=== PATIENT | male | born 1955 | race Caucasian/White ===

== ENCOUNTER 2016-03-01 17:49 | Emergency (ER) | payer OTHER ==
[~2016-03-01] VITALS: Ht 182.9 cm; Wt 104.3 kg
[2016-03-01 18:08] LABS: ABSOLUTE BASOPHIL COUNT 0 /CUMM (0.0-0.2); ABSOLUTE EOSINOPHIL COUNT 0.1 /CUMM (0.0-0.7); ABSOLUTE GRANULOCYTE CT 6.1 /CUMM (1.4-6.5); ABSOLUTE LYMPH COUNT 1.7 /CUMM (1.2-3.4); ABSOLUTE MONOCYTE COUNT 0.7 /CUMM (0.10-0.60); BASOPHIL % 0.4 % (0.0-2.0); EOSINOPHIL % 1.7 % (0-5); GRANULOCYTE % 70.7 % (42.2-75.2); HEMATOCRIT 43.7 % (42-52); MEAN CORPUSCULAR HGB 28.9 PG (27.0-31.0); MEAN CORPUSCULAR HGB CONC 33.7 G/DL (33.0-37.0); MEAN CORPUSCULAR VOLUME 85.7 FL (80.0-94.0); MEAN PLATELET VOLUME 7.4 FL (7.4-10.4); PLATELET COUNT 223 /CUMM (130-400); WHITE BLOOD CELL COUNT 8.6 /CUMM (4.8-10.8)
--- NOTE | 2016-03-01 18:20 | ED GI/GU/ABDOMINAL COMPLAINT ---
History of Present Illness General Chief Complaint: Abdominal Pain/Flank Pain Stated Complaint: BIBA FOR ABD. PAIN Source: patient Exam Limitations: no limitations Vital Signs & Intake/Output Vital Signs & Intake/Output Vital Signs Date Time Temp Pulse Resp B/P Pulse O2 O2 Flow FiO2 Ox Delivery Rate 03/01 2127 85 20 180/98 94 Room Air 03/01 1926 88 20 183/101 94 Room Air 03/01 1757 98.3 92 20 154/90 97 Room Air Allergies Coded Allergies: No Known Allergies (03/01/16) Reconcile Medications Ezetimibe (Zetia) 10 MG TABLET 1 TAB PO DAILY CHOLESTEROL (Reported) Halobetasol Propionate 0.05 % OINT...G. 1 ALFRED TOP PRN DRY HANDS (Reported) Hydromorphone HCl (Dilaudid) 2 MG TABLET 1 TAB PO BIDP PRN PAIN Ondansetron HCl (Zofran) 4 MG TABLET 1 TAB PO Q6-8P PRN NAUSEA Rosuvastatin Calcium (Crestor) 20 MG TABLET 1 TAB PO DAILY CHOLESTEROL ( Reported) Tamsulosin HCl (Flomax) 0.4 MG CAP.ER.24H 1 CAP PO DAILY KIDNEY STONE Triage Note: BIBA FROM HOME SECONDARY TO ABD PAIN X 3 DAYS. PAIN HAS BEEN WORSENING SINCE. DENIED N/V/D. TENDER TO THE TOUGH TO RUQ. Triage Nurses Notes Reviewed? yes Onset: Abrupt Duration: waxing and waning Timing: recent history Severity Numbers: 7 Location: right flank Activities at Onset: none HPI: Patient is a 60-year-old male with a past medical history of alcohol dependency, hyperlipidemia complains of a three-day history acute set of right-sided abdominal flank pain which she states that the pain was unrelenting for approximately 7 hours acute sharp stabbing severe. Patient states that the pain went away however yesterday pain then came back during the night and has been waxing and waning since. Last bowel movement was today no blood no melena noted. Denies any fever chills cough shortness breath vomiting dysuria hematuria chest pain arm pain jaw pain palpitations. Patient states that in the last 24 hours he has had little to eat or drink due to his symptoms. Patient states that he drinks approximately 2-4 ounces of liquor A DAY (HELIO LOPES,AZALIA) Past History Travel History Traveled to [place] past 21 day No Medical History Any Pertinent Medical History? see below for history Cardiovascular: HIGH CHOLESTEROL Surgical History Surgical History: appendectomy Psychosocial History What is your primary language Yi Tobacco Use: Never used ETOH Use: occasional use, DAILY ETOG WITH DINNER Family History Hx Contributory? No (AZALIA BAÑUELOS) Review of Systems Review of Systems Constitutional: Reports: no symptoms. EENTM: Reports: no symptoms. Respiratory: Reports: no symptoms. Cardiovascular: Reports: no symptoms. GI: Reports: see HPI, abdominal pain. Genitourinary: Reports: see HPI. Musculoskeletal: Reports: no symptoms. Skin: Reports: no symptoms. Neurological/Psychological: Reports: no symptoms. Hematologic/Endocrine: Reports: no symptoms. Immunologic/Allergic: Reports: no symptoms. All Other Systems: Reviewed and Negative (AZALIA BAÑUELOS) Physical Exam Physical Exam General Appearance: mild distress Gastrointestinal: normal bowel sounds, soft, RIGHT FLANK POINT TENDERNESS NO RIGHT LOWER QUADRANT PAIN NO LEFT LOWER QUADRANT PAIN NO EPIGASTRIC PAIN OR RIGHT UPPER QUADRANT PAIN. nO REBOUND TENDERNESS Comments: HEENT: Normal EENT exam, Neck: Supple, no lymphadenopathy, normal range of motion without pain or tenderness Back: Nontender, no CVA tenderness Cardiovascular: Regular rate and rhythms no murmurs rubs or gallops, normal JVP Respiratory: Chest nontender. No respiratory distress.breath sounds clear to auscultation bilaterally Extremity: No edema, no calf tenderness to palpation, normal and equal pulses. Neuro: Alert oriented x3, motor sensory normal, Skin: No appreciable rash on exposed skin, skin is warm and dry. Psych: Mood and affect is normal, memory and judgment is normal. Core Measures ACS in differential dx? No Severe Sepsis Present: No Septic Shock Present: No (AZALIA BAÑUELOS) Progress Differential Diagnosis: AAA, AMI, appendicitis, biliary colic, bowel obstruction , colon cancer, cholecystitis, diverticulitis, epididymitis, esophageal varices, gastritis, hepatitis, hernia, hemorrhoids, ischemic bowel, inflamm bowel dis, Seema-Kayley tear, orchitis, pancreatitis, prostatitis, peptic ulcer, PUD/GERD, perforated viscous, pyelonephritis, SBO, STD, testicular torsion, ureterolithiasis, urinary retention, urethritis, UTI/pyelo Plan of Care: Orders Procedure Date/time Status URINALYSIS 03/01 2044 Complete Add-on Test (ER Only) 01/22 1819 Active LIPASE 03/01 1800 Complete DIRECT BILIRUBIN 03/01 1800 Complete AMYLASE 03/01 1800 Complete COMPREHENSIVE METABOLIC PANEL 03/01 1758 Complete CBC WITHOUT DIFFERENTIAL 03/01 1758 Complete Laboratory Tests 03/01/162048: Urine Color YEL, Urine Clarity CLEAR, Urine pH 6.0, Ur Specific Lincoln 1.020, Urine Protein NEG, Urine Ketones TRACE H, Urine Nitrite NEG, Urine Bilirubin NEG, Urine Urobilinogen 0.2, Ur Leukocyte Esterase NEG, Ur Microscopic SEDIMENT EXAMINED, Urine RBC RARE, Urine Hemoglobin SMALL H, Urine Glucose NEG 03/01/161800: Anion Gap 12, Estimated GFR 52 L, BUN/Creatinine Ratio 10.0, Glucose 100 H, Calcium 9.3, Total Bilirubin 0.9, Direct Bilirubin 0.4, AST 31, ALT 67, Alkaline Phosphatase 62, Total Protein 6.6, Albumin 4.0, Globulin 2.6, Albumin/Globulin Ratio 1.5, Amylase 68, Lipase 170, CBC w Diff NO MAN DIFF REQ, RBC 5.10, MCV 85.7, MCH 28.9, RDW 14.0, MPV 7.4, Gran % 70.7, Lymphocytes % 19.5 L, Monocytes % 7.7, Eosinophils % 1.7, Basophils % 0.4, Absolute Granulocytes 6.1, Absolute Lymphocytes 1.7, Absolute Monocytes 0.7 H, Absolute Eosinophils 0.1, Absolute Basophils 0, PUBS MCHC 33.7 03/01/2016 8:20:58 PM patient had significant resolution of his pain after IV Dilaudid was administered. Patient does have concerns of a 4 mm stone with hydronephrosis. Urine analysis is unremarkable Patient had mild exacerbation of his pain in which he was administered 2 mg of by mouth Dilaudid which completely resolved his pain. Upon discharge patient looks well no apparent distress. Patient was able tolerate by mouth and also provide urine in which this was unremarkable for infection. Patient was strongly advised to follow-up with urology tomorrow and he will comply. (HELIO LOPES,AZALIA) Diagnostic Imaging: Viewed by Me: CT Scan. Radiology Impression: acute abnormality Initial ED EKG: none Comments: PATIENT: MEGAN GRAVES PRESENT AGE: 60 PATIENT ACCOUNT NO: [id number] : 54 LOCATION: [facility] ORDERING PHYSICIAN: AZALIA LOPES SERVICE DATE: 03/01/16 EXAM TYPE: CAT - CT ABD & PELVIS W/O IV CONTRAS EXAMINATION: CT ABDOMEN AND PELVIS WITHOUT CONTRAST CLINICAL INFORMATION: Right flank pain COMPARISON: None. TECHNIQUE: Multidetector volumetric imaging was performed from the superior aspect of the liver through the pubic symphysis. Sagittal and coronal reformatted images were obtained on the technologist's workstation. DLP: 853.8 mGy-cm. FINDINGS: LUNG BASES: There is bibasilar dependent atelectasis. No focal consolidation or effusion. LIVER, GALLBLADDER, AND BILIARY TREE: The liver is normal in size, shape, and attenuation. No focal hepatic lesion or biliary ductal dilatation is present. The gallbladder is unremarkable with no evidence of radiopaque gallstones, gallbladder wall thickening, or obvious pericholecystic inflammatory changes. PANCREAS: Unremarkable. SPLEEN: Unremarkable. ADRENAL GLANDS: Unremarkable. KIDNEYS AND URETERS: Left kidney is normal in size. There are at least 2 punctate densities measuring between 1 and 2 mm within the upper and midpole regions consistent with nonobstructing stones. There is no hydronephrosis. There is mild left sided perinephric stranding. The right kidney appears swollen. There is moderate hydroureteronephrosis kyphosis which is secondary to a mid ureteral stone measuring 0.4 cm in size. There is extensive asymmetric perinephric stranding on the right. BLADDER: Unremarkable. GASTROINTESTINAL TRACT: There are no dilated loops of small or large bowel. Dense stool is noted within the cecum. There are a few scattered diverticula without CT evidence for acute diverticulitis. No discrete appendix is visualized. ABDOMINAL WALL: No significant hernia is appreciated. LYMPH NODES: Normal. VASCULAR: Moderate calcifications involve the abdominal aorta. PELVIC VISCERA: Prostate and seminal vesicles are unremarkable. OSSEOUS STRUCTURES: There are mild degenerative changes involving the lumbar spine. IMPRESSION: 1. Acute moderate right-sided hydroureteronephrosis secondary to mid ureteral stone. 2. Diverticulosis without CT evidence for acute diverticulitis. (AZALIA BAÑUELOS) Departure Departure Disposition: HOME OR SELF CARE Condition: Stable Clinical Impression Primary Impression: Kidney stone on right side Referrals: ELISEO ROSARIO,LEYLA PLAMER MD,THANIA Garcia (PCP/Family) Additional Instructions: As discussed begin the prescription of Dilaudid for pain as directed. Begin the prescription of Flomax for your symptoms and the prescription OF ZOFRAN FOR NAUSEA. IF you develop a new concerning symptom or symptoms worsen return to emergency room. Tomorrow please follow up with urologist Dr. CARDENAS for further evaluation treatment. Departure Forms: Customer Survey General Discharge Information Prescriptions: Current Visit Scripts Hydromorphone HCl (Dilaudid) 1 TAB PO BIDP PRN PAIN #10 TAB Tamsulosin HCl (Flomax) 1 CAP PO DAILY #7 CAP Ondansetron HCl (Zofran) 1 TAB PO Q6-8P PRN NAUSEA #15 TAB (AZALIA BAÑUELOS) PA/OIL WELL DRILLER Co-Sign Statement Statement: ED Attending supervision documentation- [] I saw and evaluated the patient. I have also reviewed all the pertinent lab results and diagnostic results. I agree with the findings and the plan of care as documented in the PA's/OIL WELL DRILLER's documentation. [X] I have reviewed the ED Record and agree with the PA's/OIL WELL DRILLER's documentation. [] Additions or exceptions (if any) to the PAs/OIL WELL DRILLER's note and plan are summarized below: [] (FATEMEH ROSARIO,MARQUIS Islas)
[2016-03-01] MEDS ORDERED: CRESTOR20 M2 PO (19:01)
[2016-03-01] MEDS ORDERED: ZETIA10 M1 PO (19:01)
[2016-03-01] MEDS ORDERED: HALOBETASOL PRO15 G1 TOP (19:02)
--- NOTE | 2016-03-01 19:41 | CT SCAN REPORT ---
EXAMINATION: CT ABDOMEN AND PELVIS WITHOUT CONTRAST CLINICAL INFORMATION: Right flank pain COMPARISON: None. TECHNIQUE: Multidetector volumetric imaging was performed from the superior aspect of the liver through the pubic symphysis. Sagittal and coronal reformatted images were obtained on the technologist's workstation. DLP: 853.8 mGy-cm. FINDINGS: LUNG BASES: There is bibasilar dependent atelectasis. No focal consolidation or effusion. LIVER, GALLBLADDER, AND BILIARY TREE: The liver is normal in size, shape, and attenuation. No focal hepatic lesion or biliary ductal dilatation is present. The gallbladder is unremarkable with no evidence of radiopaque gallstones, gallbladder wall thickening, or obvious pericholecystic inflammatory changes. PANCREAS: Unremarkable. SPLEEN: Unremarkable. ADRENAL GLANDS: Unremarkable. KIDNEYS AND URETERS: Left kidney is normal in size. There are at least 2 punctate densities measuring between 1 and 2 mm within the upper and midpole regions consistent with nonobstructing stones. There is no hydronephrosis. There is mild left sided perinephric stranding. The right kidney appears swollen. There is moderate hydroureteronephrosis kyphosis which is secondary to a mid ureteral stone measuring 0.4 cm in size. There is extensive asymmetric perinephric stranding on the right. BLADDER: Unremarkable. GASTROINTESTINAL TRACT: There are no dilated loops of small or large bowel. Dense stool is noted within the cecum. There are a few scattered diverticula without CT evidence for acute diverticulitis. No discrete appendix is visualized. ABDOMINAL WALL: No significant hernia is appreciated. LYMPH NODES: Normal. VASCULAR: Moderate calcifications involve the abdominal aorta. PELVIC VISCERA: Prostate and seminal vesicles are unremarkable. OSSEOUS STRUCTURES: There are mild degenerative changes involving the lumbar spine. IMPRESSION: 1. Acute moderate right-sided hydroureteronephrosis secondary to mid ureteral stone. 2. Diverticulosis without CT evidence for acute diverticulitis.
[2016-03-01] MEDS ORDERED: ZOFRAN4 M2 PO (20:51)
[2016-03-01] MEDS ORDERED: DILAUDID2 M1 PO (20:51)
[2016-03-01] MEDS ORDERED: FLOMAX0.4 M1 PO (20:51)
[2016-03-01 21:28] VITALS: BP 180/98
== END 2016-03-01 21:29 ==
LOC: ERH 17:49
PROVIDERS: Physician Assistant
DX: N20.0 Calculus of kidney (principal)
CPT/HCPCS: 74176; 81001; 96361; 96374; 96375; 96376; J2405

== ENCOUNTER → 2016-03-09 | Day surgery (SDC) | payer OTHER ==
[~2016-03-09] VITALS: Ht 182.9 cm; Wt 104.3 kg
[~2016-03-09] MED LIST: AUGMENTIN 875-1 EACH PO; CIPRO500 M1 PO; CRESTOR20 M2 PO; DILAUDID2 M1 PO; FLOMAX0.4 M1 PO; HALOBETASOL PRO15 G1 TOP; PERCOCET 5-3251 EACH PO; ZETIA10 M1 PO; ZOFRAN4 M2 PO
--- NOTE | 2016-03-10 11:35 | Operative Report ---
Operative/Inv Procedure Report Surgery Date: 03/09/16 Name of Procedure: right ureteroscopy with retrograde pyelogram and stent placement Pre-Operative Diagnosis: right midureteral stone with renal colic Post-Operative Diagnosis: right kidney stone Estimated Blood Loss: aniceto Surgeon/Prisoner Classification Interviewer: LEYLA GOMES MD Anesthesia: laryngeal mask airway Drains: 6x28 ureteral stent Specimens: stone Complications: equipment issues eg water tubing, ureteroscope troubleshooting Condition: stable Operative Indication: right renal colic Operative/Procedure Note Note: 61yo male with a right midureter stone with renal colic. He was seen in the office with his first stone experience. He was given the options of ESWL vs URS with laser lithotripsy. He opted for URS. He was identified in the holding area and consented for URS with laserlithotripsy and stent placement. The risks , benefits and alternatives were given. All questions were answered for him and his . He was taken to the operating room and placed on the operating table in the supine position. Once time out was performed, he was given IV antibiotics and LMA was placed for anesthesia. He was placed into the dorsal lithotomy position and prepped and draped in the standard sterile fashion. Cystoscopy was performed first and no bladder abnormalities were noted. The ureteral orifices were in the normal anatomic position. No stones were noted in the bladder. A sensor guidewire was placed up the ureter into the kidney on the right side without difficulty and with flouroscopic guidance. A semirigid ureteroscope was then used to traverse the ureter and no stones were seen visually through the ureteroscope or via flouroscopy. As a result, a dual lumen catheter was then used to place a superstiff wire up to the renal pelvis as well. Then a flexible ureteroscopy was placed but was unable to be placed up the ureter. A retrograde pyelogram was performed and the ureter and the UPJ junction appeared somewhat narrowed and atypical. A ureteral access sheath was then placed and the flexible ureteroscope was able to be placed into the renal pelvis. The calyces were examined sequentially and the stone was seen to be in the midpole. It was yellow in color and flat and jagged. It was grabbed with a zero tip basket. It was able to be removed via the access sheath without laser lithotripsy. It was sent for stone analysis. The ureteroscope was then removed while visualizing the ureter to ensure no other stones or fragments were present. Only one was seen on CT previously. The access sheath was also removed. The remaining sensor wire was then used to place a 6x28 cm stent with the string attached. Flouroscopy showed the stent to be in good position and the wire was removed. The string was secured to his penis with tegaderm after cleaning off the betadine prep. The patient tolerated the procedure well. Findings: midpole kidney stone. retrograde pyleogram showed narrowing at the UPJ. Discharge Disposition: PACU
--- NOTE | 2016-03-10 15:21 | RADIOLOGY REPORT ---
EXAMINATION: Intraoperative fluoroscopy CLINICAL INDICATION: Right ureteroscopically and stent placement COMPARISON: CT abdomen pelvis 03/01/2016 TECHNIQUE: Intraoperative fluoroscopy was utilized by Dr. Gaxiola during a right-sided ureteroscopy and stent placement. 19 images were saved to PACS. Total fluoroscopic time: 36 seconds FINDINGS/IMPRESSION: Intraoperative fluoroscopy was utilized by Dr. Gaxiola during a right-sided ureteroscopy and stent placement. Please see operative note for detailed findings.
== END ==
LOC: STS 02:50
DX: N20.2 Calculus of kidney with calculus of ureter (principal); E78.00 Pure hypercholesterolemia, unspecified; Z87.891 Personal history of nicotine dependence
CPT/HCPCS: 74000; 82355; C2617; J0131; J0690; J2250

== ENCOUNTER 2016-03-13 11:49 | Emergency (ER) | payer OTHER ==
[~2016-03-13] VITALS: Ht 182.9 cm; Wt 98.9 kg
[~2016-03-13 11:49] MED LIST changes: -AUGMENTIN 875-1 EACH PO; -CIPRO500 M1 PO; -PERCOCET 5-3251 EACH PO
[2016-03-13 12:35] LABS: ABSOLUTE BASOPHIL COUNT 0.1 /CUMM (0.0-0.2); ABSOLUTE EOSINOPHIL COUNT 0.1 /CUMM (0.0-0.7); ABSOLUTE GRANULOCYTE CT 5.5 /CUMM (1.4-6.5); ABSOLUTE LYMPH COUNT 1.9 /CUMM (1.2-3.4); BASOPHIL % 0.8 % (0.0-2.0); EOSINOPHIL % 1.7 % (0-5); GRANULOCYTE % 63.5 % (42.2-75.2); MEAN CORPUSCULAR HGB 28.5 PG (27.0-31.0); MEAN CORPUSCULAR VOLUME 83.8 FL (80.0-94.0); PLATELET COUNT 397 /CUMM (130-400); RBC DISTRIBUTION WIDTH 13.6 % (11.5-14.5); RED BLOOD CELL CT 5.25 /CUMM (4.70-6.10); WHITE BLOOD CELL COUNT 8.7 /CUMM (4.8-10.8)
--- NOTE | 2016-03-13 13:23 | ED GENERAL ADULT ---
History of Present Illness General Chief Complaint: Low Back Pain/Injury Stated Complaint: KIDNEY STONE REMOVED TH/LBP Source: patient, old records Exam Limitations: no limitations Vital Signs & Intake/Output Vital Signs & Intake/Output Vital Signs Date Time Temp Pulse Resp B/P Pulse O2 O2 Flow FiO2 Ox Delivery Rate 03/13 1549 98.3 74 18 142/98 95 Room Air 03/13 1221 98.0 98 20 137/83 98 Room Air Room Air Allergies Coded Allergies: No Known Allergies (03/01/16) Reconcile Medications Ciprofloxacin HCl (Cipro) 500 MG TABLET 1 TAB PO BID infection/urine Ezetimibe (Zetia) 10 MG TABLET 1 TAB PO DAILY CHOLESTEROL (Reported) Halobetasol Propionate 0.05 % OINT...G. 1 ALFRED TOP PRN DRY HANDS (Reported) Hydromorphone HCl (Dilaudid) 2 MG TABLET 1 TAB PO BIDP PRN PAIN Ondansetron HCl (Zofran) 4 MG TABLET 1 TAB PO Q6-8P PRN NAUSEA Oxycodone HCl/Acetaminophen (Percocet 5-325 MG Tablet) 5 MG-325 MG TABLET 1 TAB PO Q6H PRN PAIN Rosuvastatin Calcium (Crestor) 20 MG TABLET 1 TAB PO DAILY CHOLESTEROL ( Reported) Tamsulosin HCl (Flomax) 0.4 MG CAP.ER.24H 1 CAP PO DAILY KIDNEY STONE Triage Note: PT TO ED WITH C/O RIGHT BACK/FLANK PAIN, HAD RECENT KIDNEY STONE REMOVAL, STARTED WITH BACK PAIN WORSE TODAY, TOOK 1/2 PERCOCET FOR THE PAIN. Triage Nurses Notes Reviewed? yes HPI: Patient is a 61-year-old male presents complaining of right-sided back pain. Patient had a kidney stone removal and ureteral stent placed on Wednesday. The ureteral stent was removed on Wednesday by Dr. Gaxiola. Patient reports that he has been having sharp 10 out of 10 pain to his right back intermittently since Wednesday. Pain is currently 0 out of 10. Patient took one half of a Percocet at approximately 10:30 am with significant improvement when the pain was 10 out of 10 at that time. Positive chills and subjective fevers yesterday evening. Patient was on ciprofloxacin up until yesterday evening. Positive hematuria. Patient denies nausea, vomiting, diarrhea, abdominal pain. (HEPRANAY YUAN) Past History Travel History Traveled to [place] past 21 day No Medical History Any Pertinent Medical History? see below for history Neurological: NONE EENT: NONE Cardiovascular: HIGH CHOLESTEROL Respiratory: NONE Gastrointestinal: NONE Hepatic: NONE Renal: KIDNEY STONES Musculoskeletal: NONE Psychiatric: NONE Endocrine: NONE Blood Disorders: NONE Cancer(s): NONE WELDING MACHINE OPERATOR HELPER GAS/Reproductive: NONE Surgical History Surgical History: appendectomy, URETERAL STENT Psychosocial History What is your primary language Taiwanese Tobacco Use: Never used ETOH Use: denies use Illicit Drug Use: denies illicit drug use Family History Hx Contributory? No (PRANAY JOSUE) Review of Systems Review of Systems Constitutional: Reports: chills, fever (subjective). EENTM: Reports: no symptoms. Respiratory: Denies: cough, short of breath. Cardiovascular: Denies: chest pain. GI: Reports: see HPI. Genitourinary: Reports: see HPI, hematuria. Musculoskeletal: Reports: back pain. Skin: Reports: no symptoms. Neurological/Psychological: Reports: no symptoms. Hematologic/Endocrine: Reports: no symptoms. Immunologic/Allergic: Reports: no symptoms. (PRANAY JOSUE) Physical Exam Physical Exam General Appearance: well developed/nourished, alert, awake Head: atraumatic, normal appearance Eyes: Bilateral: normal appearance, PERRL, EOMI. Ears, Nose, Throat: hearing grossly normal Neck: normal inspection, supple, full range of motion Respiratory: normal breath sounds, no respiratory distress, lungs clear Cardiovascular: regular rate/rhythm Gastrointestinal: soft, MILD RIGHT UPPER AND RIGHT MID ABDOMINAL TENDERNESS. nEGATIVE Marie SIGN. Back: normal inspection, normal range of motion, no vertebral tenderness, NO cva TENDERNESS Extremities: normal inspection, normal capillary refill, normal range of motion, no edema Neurologic/Psych: no motor/sensory deficits, awake, alert, oriented x 3, normal gait, normal mood/affect Skin: intact, normal color, warm/dry Lymphatic: no anterior cervical shruti Core Measures ACS in differential dx? No CVA/TIA Diagnosis: No Severe Sepsis Present: No Septic Shock Present: No (PRANAY JOSUE) Progress Differential Diagnoses I considered the following diagnoses in my evaluation of the patient: Renal colic, pyelonephritis, intra-abdominal infection Plan of Care: Orders Procedure Date/time Status Add-on Test (ER Only) 03/13 1504 Active CULTURE,URINE 03/13 122 Active URINALYSIS 03/13 122 Complete COMPREHENSIVE METABOLIC PANEL 03/13 122 Complete CBC WITHOUT DIFFERENTIAL 03/13 1222 Complete Laboratory Tests 03/13/16 1346: Urinalysis LIGHT H, Urine Color YEL, Urine Clarity HAZY H, Urine pH 6.0, Ur Specific [place] 1.010, Urine Protein 30 H, Urine Ketones NEG, Urine Nitrite NEG, Urine Bilirubin NEG, Urine Urobilinogen 0.2, Ur Leukocyte Esterase SMALL H , Ur Microscopic SEDIMENT EXAMINED, Urine RBC 25-50 H, Urine WBC 25-50 H, Urine Mucus RARE, Urine Hemoglobin LARGE H, Urine Glucose NEG 03/13/16 1226: Anion Gap 13, Estimated GFR > 60, BUN/Creatinine Ratio 14.5, Glucose 107 H, Calcium 9.5, Total Bilirubin 0.6, AST 37, ALT 113 H, Alkaline Phosphatase 75, Total Protein 6.9, Albumin 4.1, Globulin 2.8, Albumin/Globulin Ratio 1.5, CBC w Diff NO MAN DIFF REQ, RBC 5.25, MCV 83.8, MCH 28.5, RDW 13.6, MPV 7.0 L, Gran % 63.5, Lymphocytes % 22.0, Monocytes % 12.0 H, Eosinophils % 1.7, Basophils % 0.8, Absolute Granulocytes 5.5, Absolute Lymphocytes 1.9, Absolute Monocytes 1.0 H, Absolute Eosinophils 0.1, Absolute Basophils 0.1, PUBS MCHC 34.0 Microbiology 03/13 1222 URINE ROUT: Urine Culture - RECD 1535: Discussed with Dr. Gaxiola: can start patient back on cipro, have take 0.8mg of flomax daily, pain control and call the office on Wednesday for follow up. 1540: Plan and follow up discussed with patient, agreeable to plan. No pain currently. (MING LOPES,PRANAY) Diagnostic Imaging: Viewed by Me: CT Scan. Discussed w/RAD: CT Scan. Radiology Impression: PATIENT: MEGAN GRAVES PRESENT AGE: 61 PATIENT ACCOUNT NO: [id number] : 54 LOCATION: [facility] ORDERING PHYSICIAN: PRANAY LOPES SERVICE DATE: 03/13/16 EXAM TYPE: CAT - CT ABD & PELVIS W/O IV CONTRAS EXAMINATION: CT ABDOMEN AND PELVIS WITHOUT CONTRAST CLINICAL INFORMATION: Right back pain and chills. Recent renal stent placement and removal. COMPARISON: Previous CT of the abdomen and pelvis 2016 and intraoperative fluoroscopic images from right retrograde exam and stent placement 03/09/2016. TECHNIQUE: Multidetector volumetric imaging was performed from the superior aspect of the liver through the pubic symphysis. Sagittal and coronal reformatted images were obtained on the technologist's workstation. DLP: 635 mGy-cm FINDINGS: LUNG BASES: The lung bases are clear. There is elevation of the left hemidiaphragm. The visualized thoracic aorta appears upper normal in size. There is aortic valve and coronary artery calcification. LIVER, GALLBLADDER, AND BILIARY TREE: The liver is normal in size, shape, and attenuation. No focal hepatic lesion or biliary ductal dilatation is present. The gallbladder is unremarkable with no evidence of radiopaque gallstones, gallbladder wall thickening, or obvious pericholecystic inflammatory changes. PANCREAS: Unremarkable. SPLEEN: Unremarkable. ADRENAL GLANDS: Unremarkable. KIDNEYS AND URETERS: There is moderate right renal hydronephrosis and proximal dilatation. There is a 2 x 4 mm right mid ureteral stone. This is similar in location to previous exam 03/01/2016. The ureter distal to this is dilated as well. There is stranding of the right perinephric and periureteral fat. This is similar to previous exam. No retroperitoneal fluid collection is seen. There is a 2 mm stone in the upper pole of the left kidney and a 2 mm stone in the lower pole of the left kidney. No left hydronephrosis, ureteral dilatation or ureteral stone is seen. There is a small calcification in the right renal hilum probably representing a vascular calcification. BLADDER: There is a small amount of air in the bladder likely related to previous retrograde exam 03/09/2016. GASTROINTESTINAL TRACT: There is evidence of diverticulosis. The appendix is unremarkable. ABDOMINAL WALL: There is a small umbilical hernia containing fat. LYMPH NODES: Normal. VASCULAR: There is evidence of atherosclerotic disease. No aneurysm is seen. PELVIC VISCERA: Unremarkable. OSSEOUS STRUCTURES: There are degenerative changes of the spine. IMPRESSION: Mild right hydronephrosis and right proximal ureteral dilatation from a 2 x 4 mm right mid ureteral stone. This appears unchanged in location from 03/01/2016 exam. The right ureter distal to the stone is slightly dilated as well. There is fat stranding of the right perinephric and periureteral fat that is unchanged. 2 small left renal stones. Diverticulosis. Upper normal-sized thoracic aorta. Coronary artery and aortic valve calcification. DICTATED BY: ARABELLA GAN MD DATE/TIME DICTATED:1433 MEDICAL TECHNOLOGIST HEMATOLOGY:MARISELA DATE/TIME TRANSCRIBED:03/13/161433 CONFIDENTIAL, DO NOT COPY WITHOUT APPROPRIATE AUTHORIZATION. <Electronically signed in Other Vendor System> SIGNED BY: ARABELLA GAN MD 03/13/16 1455 Initial ED EKG: none (PRANAY JOSUE) Departure Departure Time of Disposition: 1540 Disposition: HOME OR SELF CARE Condition: Stable Clinical Impression Primary Impression: Renal colic on right side Referrals: ELISEO ROSARIO,LEYLA PALMER MD,THANIA Garcia (PCP/Family) Additional Instructions: Call Dr. Gaxiola on Wednesday for follow up. Take 0.8mg of Flomax daily. Return to the ER if fever above 100.3, pain uncontrollable or worsening of symptoms. Departure Forms: Customer Survey General Discharge Information Prescriptions: Current Visit Scripts Ciprofloxacin HCl (Cipro) 1 TAB PO BID #20 TAB Oxycodone HCl/Acetaminophen (Percocet 5-325 MG Tablet) 1 TAB PO Q6H PRN PAIN #10 TAB (PRANAY JOSUE) PA/AWNING CRAFTSPERSON Co-Sign Statement Statement: ED Attending supervision documentation- [] I saw and evaluated the patient. I have also reviewed all the pertinent lab results and diagnostic results. I agree with the findings and the plan of care as documented in the PA's/AWNING CRAFTSPERSON's documentation. [x] I have reviewed the ED Record and agree with the PA's/AWNING CRAFTSPERSON's documentation. [] Additions or exceptions (if any) to the PAs/AWNING CRAFTSPERSON's note and plan are summarized below: [] (ROSA PATEL,GUY Thayer) Critical Care Note Critical Care Note Critical Care Time: non-applicable (PRANAY JOSUE)
--- NOTE | 2016-03-13 14:55 | CT SCAN REPORT ---
EXAMINATION: CT ABDOMEN AND PELVIS WITHOUT CONTRAST CLINICAL INFORMATION: Right back pain and chills. Recent renal stent placement and removal. COMPARISON: Previous CT of the abdomen and pelvis 03/01/2016 and intraoperative fluoroscopic images from right retrograde exam and stent placement 03/09/2016. TECHNIQUE: Multidetector volumetric imaging was performed from the superior aspect of the liver through the pubic symphysis. Sagittal and coronal reformatted images were obtained on the technologist's workstation. DLP: 635 mGy-cm FINDINGS: LUNG BASES: The lung bases are clear. There is elevation of the left hemidiaphragm. The visualized thoracic aorta appears upper normal in size. There is aortic valve and coronary artery calcification. LIVER, GALLBLADDER, AND BILIARY TREE: The liver is normal in size, shape, and attenuation. No focal hepatic lesion or biliary ductal dilatation is present. The gallbladder is unremarkable with no evidence of radiopaque gallstones, gallbladder wall thickening, or obvious pericholecystic inflammatory changes. PANCREAS: Unremarkable. SPLEEN: Unremarkable. ADRENAL GLANDS: Unremarkable. KIDNEYS AND URETERS: There is moderate right renal hydronephrosis and proximal dilatation. There is a 2 x 4 mm right mid ureteral stone. This is similar in location to previous exam 03/01/2016. The ureter distal to this is dilated as well. There is stranding of the right perinephric and periureteral fat. This is similar to previous exam. No retroperitoneal fluid collection is seen. There is a 2 mm stone in the upper pole of the left kidney and a 2 mm stone in the lower pole of the left kidney. No left hydronephrosis, ureteral dilatation or ureteral stone is seen. There is a small calcification in the right renal hilum probably representing a vascular calcification. BLADDER: There is a small amount of air in the bladder likely related to previous retrograde exam 03/09/2016. GASTROINTESTINAL TRACT: There is evidence of diverticulosis. The appendix is unremarkable. ABDOMINAL WALL: There is a small umbilical hernia containing fat. LYMPH NODES: Normal. VASCULAR: There is evidence of atherosclerotic disease. No aneurysm is seen. PELVIC VISCERA: Unremarkable. OSSEOUS STRUCTURES: There are degenerative changes of the spine. IMPRESSION: Mild right hydronephrosis and right proximal ureteral dilatation from a 2 x 4 mm right mid ureteral stone. This appears unchanged in location from 03/01/2016 exam. The right ureter distal to the stone is slightly dilated as well. There is fat stranding of the right perinephric and periureteral fat that is unchanged. 2 small left renal stones. Diverticulosis. Upper normal-sized thoracic aorta. Coronary artery and aortic valve calcification.
[2016-03-13 15:49] VITALS: BP 142/98
[2016-03-13] MEDS ORDERED: CIPRO500 M1 PO (15:50)
[2016-03-13] MEDS ORDERED: PERCOCET 5-3251 EACH PO (15:50)
== END 2016-03-13 15:57 ==
LOC: ERH 11:49
PROVIDERS: Emergency Medicine
DX: N23 Unspecified renal colic (principal)
CPT/HCPCS: 74176; 81001; 87086; 96374; J1885

== ENCOUNTER 2016-06-16 17:25 | Emergency (ER) | payer OTHER ==
[~2016-06-16] VITALS: Ht 182.9 cm; Wt 99.8 kg
[~2016-06-16 17:25] MED LIST changes: +CIPRO500 M1 PO; +PERCOCET 5-3251 EACH PO
[2016-06-16 17:40] VITALS: BP 112/72
--- NOTE | 2016-06-16 18:09 | ED HAND/WRIST INJURY COMPLAINT ---
History of Present Illness General Chief Complaint: Laceration Procedure Stated Complaint: LAC TO FINGER Source: patient, family, old records Exam Limitations: no limitations Vital Signs & Intake/Output Vital Signs & Intake/Output Vital Signs Date Time Temp Pulse Resp B/P B/P Pulse O2 O2 Flow FiO2 Mean Ox Delivery Rate 06/16 1740 112/72 06/16 1729 97.5 73 16 87/65 94 Room Air ED Intake and Output 06/17 0000 06/16 1200 Intake Total Output Total Balance Patient 220 lb Weight Allergies Coded Allergies: No Known Allergies (03/01/16) Reconcile Medications Amoxicillin/Potassium Clav (Augmentin 875-125 Tablet) 875 MG-125 MG TABLET 1 TAB PO BID open tuft fracture Ezetimibe (Zetia) 10 MG TABLET 1 TAB PO DAILY CHOLESTEROL (Reported) Rosuvastatin Calcium (Crestor) 20 MG TABLET 1 TAB PO DAILY CHOLESTEROL ( Reported) Triage Note: PT CUT HIS FINGER ON A CIRCULAR SAW. PT IN WAITING ROOM PASSING OUT IN CHAIR. PLACED ON EKG STRETCHER Triage Nurses Notes Reviewed? yes HPI: Patient is a 61 year old male presents complaining of laceration to his left middle finger. Patient was using a circular saw at 1700 today when he accidentally lacerated his finger. Pain is 1/10, worsens with palpation. Last tetanus immunization within the past 5 years. Patient is right hand dominant. Denies numbness or decreased range of motion. Patient had a near syncopal episode in the waiting room, improved with lying flat. (PRANAY JOSUE) Past History Travel History Traveled to [place] past 21 day No Medical History Any Pertinent Medical History? see below for history Neurological: NONE EENT: NONE Cardiovascular: HIGH CHOLESTEROL Respiratory: NONE Gastrointestinal: NONE Hepatic: NONE Renal: KIDNEY STONES Musculoskeletal: NONE Psychiatric: NONE Endocrine: NONE Blood Disorders: NONE Cancer(s): NONE GUEST SERVICE MANAGER/Reproductive: NONE Surgical History Surgical History: appendectomy, URETERAL STENT Psychosocial History What is your primary language Togolese Tobacco Use: Never used ETOH Use: occasional use Illicit Drug Use: denies illicit drug use Family History Hx Contributory? No (PRANAY JOSUE) Review of Systems Review of Systems Constitutional: Reports: no symptoms. Cardiovascular: Reports: syncope (NEAR SYNCOPE IN WAITING ROOM). Musculoskeletal: Reports: see HPI. Skin: Reports: see HPI. Neurological/Psychological: Denies: numbness, paresthesia. Hematologic/Endocrine: Reports: bleeding (FROM WOUND). Immunologic/Allergic: Denies: splenectomy. (PRANAY JOSUE) Physical Exam Physical Exam General Appearance: well developed/nourished, alert, awake Head: atraumatic, normal appearance Eyes: Bilateral: normal appearance. Ears, Nose, Throat: hearing grossly normal Neck: normal inspection, supple, full range of motion Cardiovascular/Respiratory: no respiratory distress Back: normal range of motion Hand Left: macerated 2.5 cm laceration to the left middle finger distal on the ulnar side inculding the ulnar border of the finger nail. Full range of motion, no visible or functional tendon deficit. Sensation grossly intact Hand Right: normal inspection, normal range of motion Neurologic/Tendon: normal sensation, normal motor functions, normal tendon functions Skin: wound to left middle finger. see left hand exam (PRANAY JOSUE) Progress Differential Diagnosis: laceration, tendon laceration, foreign body, fracture Plan of Care: Current Medications Sig/Enrrique Start time Last Medication Dose Stop Time Status Admin Amoxicillin/ 875 MG ONCE ONE 06/17 1999 AC Clavulanate Potassium 06/16 2000 (Augmentin) Results of x-rays discussed with patient and his . Unable to find and remove foreign body(vs bone fragment) seen on x-ray. This was discussed with patient and his . Patient to follow up with hand surgery for further evaluation. (PRANAY JOSUE) Diagnostic Imaging: Viewed by Me: Radiology Read. Discussed w/RAD: Radiology Read. Radiology Impression: PATIENT: MEGAN GRAVES PRESENT AGE: 61 PATIENT ACCOUNT NO: [id number] : 54 LOCATION: [facility] ORDERING PHYSICIAN: PRANAY LOPES SERVICE DATE: 06/16/16 EXAM TYPE: RAD - XRY-FINGERS, LEFT EXAMINATION: XR FINGER, LEFT CLINICAL INFORMATION: Trauma to left middle digit. COMPARISON: None TECHNIQUE: Three views of the left middle digit. FINDINGS: Bandage over the distal finger. Soft tissue laceration at the distal tip of the middle digit. There is comminuted mildly displaced fracture of the distal tuft of the distal phalanx. Fracture extends obliquely through the mid to proximal shaft of the distal phalanx to the periarticular the bone at the radial side of the phalanges. There is bone loss of the ulnar side of the distal tuft of the distal phalanges and likely some loss of soft tissue. There is a radiopaque 2 mm foreign body or calcification in the soft tissues at the radial side of the distal tip of the digit. IMPRESSION: Soft tissue laceration with comminuted fracture of the distal phalanges of the middle digit. 2 mm radiopaque foreign body or calcification the soft tissues at the radial side of the distal tip of this digit. DICTATED BY: GERARDO RANDHAWA MD DATE/TIME DICTATED:06/16/161823 STRE[address] LIGHT REPAIRER:MARISELA DATE/TIME TRANSCRIBED:06/16/161823 CONFIDENTIAL, DO NOT COPY WITHOUT APPROPRIATE AUTHORIZATION. <Electronically signed in Other Vendor System> SIGNED BY: GERARDO RANDHAWA MD 06/16/161829 (PRANAY JOSUE) Departure Departure Time of Disposition: 1946 Disposition: HOME OR SELF CARE Condition: Stable Clinical Impression Primary Impression: Open fracture of tuft of distal phalanx of finger Qualifiers: Encounter type: initial encounter Qualified Code: S62.639B - Displaced fracture of distal phalanx of unspecified finger, initial encounter for open fracture Referrals: ESTELA ROSARIO,THANIA Garcia (PCP/Family) CAN ROSARIO,TEO Mcmahon Additional Instructions: Follow up with Dr. Lawrence(hand surgeon), or with your hand specialist Dr. Dickinson, this week for further evaluation. Call in the morning for appointment. Keep the dressing on for 2 days, then change the dressing daily. Wear finger splint for support and to aid with healing. Return to the ER immediately if pus from the wound, redness spreading from the wound, fevers, increasing pain or worsening of symptoms. Departure Forms: Customer Survey General Discharge Information Prescriptions: Current Visit Scripts Amoxicillin/Potassium Clav (Augmentin 875-125 Tablet) 1 TAB PO BID #14 TAB (PRANAY JOSUE) PA/SOLUTIONS ENGINEER Co-Sign Statement Statement: ED Attending supervision documentation- [] I saw and evaluated the patient. I have also reviewed all the pertinent lab results and diagnostic results. I agree with the findings and the plan of care as documented in the PA's/SOLUTIONS ENGINEER's documentation. [X] I have reviewed the ED Record and agree with the PA's/SOLUTIONS ENGINEER's documentation. [] Additions or exceptions (if any) to the PAs/SOLUTIONS ENGINEER's note and plan are summarized below: [] (DELLA ROSARIO,PEPPER) Procedures Laceration/Wound Repair Progress: Finger prepped with Betadine. 1% lidocaine 9 mL injected for digital block. Wound irrigated with 1000 mL of sterile water. Wound probed and examined. Unable to locate foreign body seen on x-ray. Small bony fragment was removed, but this bone fragment was larger than the foreign body seen on x-ray. 3 vicryl 4-0 simple interrupted sutures placed. Xeroform, clean dressing, and finger splint placed. Well tolerated by patient. (MING LOPES,PRANAY)
--- NOTE | 2016-06-16 18:30 | RADIOLOGY REPORT ---
EXAMINATION: XR FINGER, LEFT CLINICAL INFORMATION: Trauma to left middle digit. COMPARISON: None TECHNIQUE: Three views of the left middle digit. FINDINGS: Bandage over the distal finger. Soft tissue laceration at the distal tip of the middle digit. There is comminuted mildly displaced fracture of the distal tuft of the distal phalanx. Fracture extends obliquely through the mid to proximal shaft of the distal phalanx to the periarticular the bone at the radial side of the phalanges. There is bone loss of the ulnar side of the distal tuft of the distal phalanges and likely some loss of soft tissue. There is a radiopaque 2 mm foreign body or calcification in the soft tissues at the radial side of the distal tip of the digit. IMPRESSION: Soft tissue laceration with comminuted fracture of the distal phalanges of the middle digit. 2 mm radiopaque foreign body or calcification the soft tissues at the radial side of the distal tip of this digit.
[2016-06-16] MEDS ORDERED: AUGMENTIN 875-1 EACH PO (19:47)
== END 2016-06-16 20:17 ==
LOC: ERH 17:25
DX: S62.633B Displaced fracture of distal phalanx of left middle finger, initial encounter for open fracture (principal); W27.0XXA Contact with workbench tool, initial encounter; Y92.9 Unspecified place or not applicable; Y93.9 Activity, unspecified
CPT/HCPCS: 73140-LT